=== PATIENT | male | born 1955 | race Caucasian/White ===

== ENCOUNTER 2020-02-11 17:25 | Inpatient (IN) | payer MEDICARE, BC ==
[~2020-02-11] VITALS: Ht 182.9 cm; Wt 63.5 kg
[~2020-02-11 17:25] MED LIST: AMLO-150 PO; CHOL100015 PO; CLON-364 PO; DIVA500T17 PO; LISI1TAB20 PO; MELA3TAB45 PO; RIVA20TA PO; SOTA80TA PO
[2020-02-11 17:31] VITALS: BP 134/102
[2020-02-11] MEDS ORDERED: PLEASE ENTER HEIGHT AND WEIGHT MC SCH (18:00)
[2020-02-11] MEDS ORDERED: DIGOXIN 0.25 MG/ML, 2ML IVPush ONE (18:00)
[2020-02-11 18:25] VITALS: BP 114/82
[2020-02-11] MEDS ORDERED: DILTIAZEM 125 MG in SODIUM CHLORIDE 0.9% 100 ML IV SCH (18:30)
[2020-02-11] MEDS ORDERED: DILTIAZEM 5 MG/ML, 5ML IVPush ONE (18:30)
[2020-02-11] MEDS ORDERED: SOTALOL 120MG TABLET ONE (18:34)
[2020-02-11] MEDS: SOTALOL 120MG TABLET PO SCH (18:36)
[2020-02-11] MEDS: RIVAROXABAN 20 MG TABLET PO SCH (18:41)
[2020-02-11 18:44] LABS: ANION GAP 5 mmol/L (5-15); CALCIUM 9.2 mg/dL (8.5-10.1); CHLORIDE 106 mmol/L (98-107); CHOLESTEROL, TOTAL 186 mg/dL (140-239); CREATININE 1.82 mg/dL (0.7-1.3)
[2020-02-11 18:49] LABS: CHOL/HDL RATIO 5.5; FREE T4 (FREE THYROXINE) 1.03 ng/dL (0.76-1.46); HDL CHOL % 18 % (26-37); HDL CHOLESTEROL (DIRECT) 34 mg/dL (40-60); LDL CHOLESTEROL,CALCULATED 129 mg/dL (54-169); LDL/HDL RATIO 3.8 (0.5-3.0); TRIGLYCERIDES 114 mg/dL (50-200); VLDL CHOLESTEROL 23 mg/dL (0-25)
[2020-02-11 18:56] VITALS: BP 118/82
[2020-02-11 20:04] VITALS: BP 115/80
[2020-02-11] MEDS: MELATONIN 3 MG TABLET PO SCH (21:43)
[2020-02-12 01:23] VITALS: BP 100/61
[2020-02-12 07:27] VITALS: BP 119/80
[2020-02-12 07:28] LABS: TROPONIN I 0.053 ng/mL (0.000-0.045)
[2020-02-12] MEDS ORDERED: HYDROCHLOROTHIAZIDE 25 MG TABLET PO SCH (09:00)
[2020-02-12] MEDS: SOTALOL 120MG TABLET PO SCH ×2 (09:41→17:06)
[2020-02-12] MEDS: DIVALPROEX 500 MG TAB.ER.24H PO SCH (09:41)
[2020-02-12] MEDS: LISINOPRIL 20 MG TABLET PO SCH (09:41)
[2020-02-12 12:57] VITALS: BP 138/91
[2020-02-12] MEDS ORDERED: PROPOFOL 10 MG/ML, 20ML ONE (13:00)
[2020-02-12] MEDS: RIVAROXABAN 20 MG TABLET PO SCH (17:06)
[2020-02-12 18:19] VITALS: BP 154/88
[2020-02-12] MEDS ORDERED: DIVALPROEX 500 MG TAB.ER.24H PO SCH (21:00)
[2020-02-12] MEDS: MELATONIN 3 MG TABLET PO SCH (21:07)
[2020-02-13 02:20] VITALS: BP 114/69
[2020-02-13 06:17] VITALS: BP 120/75
[2020-02-13] MEDS: SOTALOL 120MG TABLET PO SCH (06:39)
[2020-02-13 06:49] LABS: ANION GAP 3 mmol/L (5-15); CALCIUM 8.4 mg/dL (8.5-10.1); CHLORIDE 103 mmol/L (98-107); CREATININE 1.15 mg/dL (0.7-1.3)
[2020-02-13 08:14] VITALS: BP 150/86
[2020-02-13] MEDS ORDERED: LISI-170 PO (08:46)
[2020-02-13] MEDS ORDERED: AMLO-150 PO (08:46)
[2020-02-13] MEDS: DIVALPROEX 500 MG TAB.ER.24H PO SCH (10:06)
[2020-02-13] MEDS: LISINOPRIL 20 MG TABLET PO SCH (10:06)
[2020-02-13] MEDS ORDERED: SOTA120T14 PO (12:07)
== END 2020-02-13 12:25 | disposition home or self-care (01) | DRG 309 ==
LOC: 5SO 17:25 → DCLOUNGE 02-13 12:12
PROVIDERS: ADMIT Internal Medicine Cardiovascular Disease; ATTEND Internal Medicine Cardiovascular Disease
PROC: 5A2204Z Restoration of Cardiac Rhythm, Single (ICD-10-PCS; principal; 2020-02-12 13:30)
DX: I48.91 Unspecified atrial fibrillation (principal); D68.69 Other thrombophilia; N28.9 Disorder of kidney and ureter, unspecified; I10 Essential (primary) hypertension; F31.9 Bipolar disorder, unspecified; Z79.899 Other long term (current) drug therapy
CPT/HCPCS: 36415; 71045; 80048; 80061; 84439; 84443; 84484; 85014; 85018; 92960; 93005; G0378; J2704; J1160